=== PATIENT | female | born 1935 | race Caucasian/White ===

== ENCOUNTER 2018-06-26 09:23 | Outpatient (CLI) | payer OTHER | END 2018-06-26 15:03 | disposition home or self-care (01) | LOC: SONOGRAMA 09:23 | DX: R33.8 Other retention of urine (principal); N19 Unspecified kidney failure; N17.9 Acute kidney failure, unspecified; J47.9 Bronchiectasis, uncomplicated ==

== ENCOUNTER → 2019-05-09 | Outpatient (CLI) | payer OTHER | END | disposition home or self-care (01) | LOC: RAD 13:31 | DX: M96.671 Fracture of tibia or fibula following insertion of orthopedic implant, joint prosthesis, or bone plate, right leg (principal); M17.0 Bilateral primary osteoarthritis of knee ==

== ENCOUNTER 2022-05-25 09:27 | Outpatient (CLI) | payer OTHER | END 2022-05-25 09:33 | disposition home or self-care (01) | LOC: SONOGRAMA 09:27 | PROVIDERS: ATTEND Internal Medicine Endocrinology, Diabetes & Metabolism | DX: M06.1 Adult-onset Still's disease (principal); M81.0 Age-related osteoporosis without current pathological fracture ==